=== PATIENT | female | born 1980 ===

== ENCOUNTER 2023-11-07 10:11 | Outpatient (REF) | payer OTHER, SELFPAY ==
[2023-11-07 15:02] LABS: Hemoglobin A1C 5.6 % (<5.7)
[2023-11-07 15:43] LABS: ALT 26 U/L (14-59); AST 22 U/L (15-37); Alkaline Phosphatase 48 U/L (46-116); Anion Gap 10.3 mmol/L (3-11); BUN 15 mg/dL (7-18); Bilirubin, Total 0.4 mg/dL (0.2-1.0); CO2 26.7 mmol/L (21.0-32.0); CREATININE 0.7 mg/dL (0.55-1.02); Calcium 8.8 mg/dL (8.5-10.1); Calculated LDL 77 mg/dL (<100); Chloride 104 mmol/L (98-107); Cholesterol 150 mg/dL (<200); Estimated GFR 110.67 (mL/min/1.73m2); Glucose 102 mg/dL (74-106); HDL Cholesterol 53 mg/dL (40-60); Sodium 141 mmol/L (136-145); Total Protein 7.4 g/dL (6.4-8.2); Triglyceride 102 mg/dL (<150)
== END 2023-11-07 10:12 | disposition home or self-care (01) ==
LOC: NCHCN 10:11
PROVIDERS: Visit Provider Family Medicine
DX: Z13.220 Encounter for screening for lipoid disorders (principal); Z86.32 Personal history of gestational diabetes; R63.5 Abnormal weight gain
CPT/HCPCS: 80053; 80061; 83036; 84443